=== PATIENT | male | born 1975 | race African-American/Black ===

== ENCOUNTER 2016-08-03 08:27 | Inpatient (IN) | payer OTHER ==
[~2016-08-03] VITALS: Ht 167.6 cm; Wt 69.5 kg
[2016-08-03 09:31] LABS: MCH 29.5 PG (29.0-34.0); MCHC 33.4 G/DL (30.0-36.0); MCV 88.2 FL (86-99); MEAN PLAT.VOLUME 9.6 uM^3 (9.0-12.4); PLATELET COUNT 325 K/uL (156-360); RBC DIS.WIDTH-CV 12.3 % (11.8-14.6); RBC DIS.WIDTH-SD 39.9 % (39-53); RED BLOOD COUNT 4.65 M/uL (4.00-5.50); WHITE BLOOD COUNT 23.8 K/uL (4.1-10.2)
[2016-08-03 10:08] LABS: ALKALINE PHOSPHATASE 104 IU/L (3-129); ANION GAP 11 MEQ/L (2-14); CHLORIDE 92 MEQ/L (99-109); GFR ESTIMATE (CALCULATED) > 59 mL/min/; GLUCOSE 389 mg/dL (70-99); POTASSIUM 4.3 MEQ/L (3.7-5.4); SAMPLE HEMOLYSIS CHECK 0; SAMPLE ICTERIC CHECK 0; SAMPLE LIPEMIA CHECK 0; SODIUM 131 MEQ/L (136-147); TOTAL BILIRUBIN 0.7 MG/DL (0.0-1.0); UREA NITROGEN (BUN) 14 mg/dL (9-23)
[2016-08-03] MEDS ORDERED: ALEVE220 MG PO (10:18)
[2016-08-03] MEDS ORDERED: MOTRIN IB200 MG PO (10:19)
[2016-08-03 10:26] LABS: BASOPHIL COUNT 0.1 K/uL (0-0.1); EOSINOPHIL (%) 0.5 % (0-5); EOSINOPHIL COUNT 0.1 K/uL (0-0.3); IMMATURE GRANULOCYTE (%) 0.5 % (0.0-0.7); IMMATURE GRANULOCYTE COUNT 0.1 K/uL; INSTRUMENT ABS NEUTROPHIL CT 19.8 K/uL; LYMPHOCYTE COUNT 1.4 K/uL (1.0-2.8); MONOCYTE (%) 9.9 % (3-12); MONOCYTE COUNT 2.4 K/uL (0-0.8); NEUTROPHIL (%) 83.1 % (45-76); NEUTROPHIL COUNT 19.8 K/uL (1.8-6.4)
[2016-08-03 12:51] LABS: C-REACTIVE PROTEIN > 240.0 MG/L (0-10); HDL CHOLESTEROL 14 MG/DL (Desirable>=40); LDL CHOLESTEROL 54 mg/dL (Desirable<100); NON-HDL CHOLESTEROL 71 mg/dL (Desirable<160); TOTAL CHOLESTEROL 85 mg/dL (Desirable<200); TRIGLYCERIDES 85 MG/DL (Normal: <150)
[2016-08-03 13:14] LABS: Estimated Average Glucose 286 mg/dL (70-123); HEMOGLOBIN A1c (GLYCOHEMOGLOB) 11.6 % HGB (Below 5.7)
[2016-08-03 14:24] LABS: POINT-OF-CARE METER ID UU14100415
[2016-08-03 17:35] VITALS: BP 141/74
[2016-08-03 19:41] VITALS: BP 124/62
[2016-08-03 23:16] VITALS: BP 133/73
[2016-08-04 06:39] LABS: ANION GAP 6 MEQ/L (2-14); CHLORIDE 98 MEQ/L (99-109); GFR ESTIMATE (CALCULATED) > 59 mL/min/; POTASSIUM 3.7 MEQ/L (3.7-5.4); SAMPLE HEMOLYSIS CHECK 0; SAMPLE ICTERIC CHECK 0; SAMPLE LIPEMIA CHECK 0; SODIUM 135 MEQ/L (136-147); UREA NITROGEN (BUN) 11 mg/dL (9-23)
[2016-08-04 06:40] LABS: GLUCOSE 175 mg/dL (70-99)
[2016-08-04 07:08] LABS: POINT-OF-CARE METER ID UU14188577
[2016-08-04 07:35] LABS: HEMATOCRIT 35.7 % (38.0-50.0); MCH 28.8 PG (29.0-34.0); MCHC 32.8 G/DL (30.0-36.0); MCV 87.9 FL (86-99); MEAN PLAT.VOLUME 9.4 uM^3 (9.0-12.4); PLATELET COUNT 293 K/uL (156-360); RBC DIS.WIDTH-CV 12.6 % (11.8-14.6); RBC DIS.WIDTH-SD 40.9 % (39-53); RED BLOOD COUNT 4.06 M/uL (4.00-5.50); WHITE BLOOD COUNT 25.6 K/uL (4.1-10.2)
[2016-08-04 08:00] VITALS: BP 131/75
[2016-08-04 12:12] VITALS: BP 147/82
[2016-08-04 12:25] LABS: POINT-OF-CARE METER ID UU14149397
[2016-08-04 15:58] VITALS: BP 130/74
[2016-08-04 17:10] LABS: POINT-OF-CARE METER ID UU14149397
[2016-08-04 19:55] VITALS: BP 140/81
[2016-08-04 23:09] LABS: POINT-OF-CARE METER ID UU14149397
[2016-08-05 00:17] VITALS: BP 117/60
[2016-08-05 03:53] VITALS: BP 138/69
[2016-08-05 07:51] VITALS: BP 129/70
[2016-08-05 08:44] LABS: HEMATOCRIT 35.5 % (38.0-50.0); MCH 29.2 PG (29.0-34.0); MCV 88.5 FL (86-99); MEAN PLAT.VOLUME 9.6 uM^3 (9.0-12.4); PLATELET COUNT 328 K/uL (156-360); RBC DIS.WIDTH-SD 42.2 % (39-53); RED BLOOD COUNT 4.01 M/uL (4.00-5.50); WHITE BLOOD COUNT 20.7 K/uL (4.1-10.2)
[2016-08-05 09:10] LABS: ANION GAP 8 MEQ/L (2-14); CHLORIDE 97 MEQ/L (99-109); GFR ESTIMATE (CALCULATED) > 59 mL/min/; POTASSIUM 4.4 MEQ/L (3.7-5.4); SAMPLE HEMOLYSIS CHECK 0; SAMPLE ICTERIC CHECK 0; SAMPLE LIPEMIA CHECK 0; SODIUM 133 MEQ/L (136-147); UREA NITROGEN (BUN) 9 mg/dL (9-23)
[2016-08-05 09:11] LABS: GLUCOSE 309 mg/dL (70-99)
[2016-08-05 11:18] LABS: POINT-OF-CARE METER ID UU14149397
[2016-08-05 11:30] VITALS: BP 123/71
[2016-08-05 15:45] LABS: POINT-OF-CARE METER ID UU14149397
[2016-08-05 15:56] VITALS: BP 141/93
[2016-08-05 19:57] LABS: POINT-OF-CARE METER ID UU13113675
[2016-08-05 21:14] VITALS: BP 118/60
[2016-08-05 22:13] LABS: POINT-OF-CARE METER ID UU14149397
[2016-08-06 00:32] VITALS: BP 123/65
[2016-08-06 03:38] VITALS: BP 124/68
[2016-08-06 04:42] LABS: HEMATOCRIT 33.7 % (38.0-50.0); MCH 29.2 PG (29.0-34.0); MCHC 33.2 G/DL (30.0-36.0); MCV 87.8 FL (86-99); MEAN PLAT.VOLUME 9.5 uM^3 (9.0-12.4); PLATELET COUNT 319 K/uL (156-360); RBC DIS.WIDTH-CV 12.9 % (11.8-14.6); RBC DIS.WIDTH-SD 41.4 % (39-53); RED BLOOD COUNT 3.84 M/uL (4.00-5.50); WHITE BLOOD COUNT 17.1 K/uL (4.1-10.2)
[2016-08-06 04:57] LABS: CHLORIDE 102 mEq/L (99-109); POTASSIUM 3.7 mEq/L (3.7-5.4); SODIUM 134 mEq/L (136-147)
[2016-08-06 04:58] LABS: GLUCOSE 319 mg/dL (70-99)
[2016-08-06 05:00] LABS: ANION GAP 8 MEQ/L (2-14)
[2016-08-06 05:02] LABS: GFR ESTIMATE (CALCULATED) > 59 mL/min/
[2016-08-06 05:03] LABS: UREA NITROGEN (BUN) 11 mg/dL (9-23)
[2016-08-06 06:19] LABS: POINT-OF-CARE METER ID UU14149397
[2016-08-06 07:00] VITALS: BP 127/73
[2016-08-06 08:29] LABS: POINT-OF-CARE METER ID UU14149397
[2016-08-06 10:56] VITALS: BP 117/78
[2016-08-06 12:47] LABS: HEMATOCRIT 36.1 % (38.0-50.0); MCHC 32.4 G/DL (30.0-36.0); MCV 89.4 FL (86-99); MEAN PLAT.VOLUME 10.1 uM^3 (9.0-12.4); PLATELET COUNT 361 K/uL (156-360); RBC DIS.WIDTH-CV 13.1 % (11.8-14.6); RBC DIS.WIDTH-SD 43.4 % (39-53); RED BLOOD COUNT 4.04 M/uL (4.00-5.50); WHITE BLOOD COUNT 14.4 K/uL (4.1-10.2)
[2016-08-06 14:28] VITALS: BP 139/73
[2016-08-06 16:28] LABS: POINT-OF-CARE METER ID UU14149397
[2016-08-06 22:53] LABS: POINT-OF-CARE METER ID UU14188577
[2016-08-06 23:12] VITALS: BP 133/81
[2016-08-07 04:16] VITALS: BP 143/84
[2016-08-07 06:45] LABS: HEMATOCRIT 33.3 % (38.0-50.0); MCH 29.7 PG (29.0-34.0); MCHC 33.6 G/DL (30.0-36.0); MCV 88.3 FL (86-99); MEAN PLAT.VOLUME 9.9 uM^3 (9.0-12.4); PLATELET COUNT 369 K/uL (156-360); RBC DIS.WIDTH-SD 41.2 % (39-53); RED BLOOD COUNT 3.77 M/uL (4.00-5.50)
[2016-08-07 07:08] LABS: ANION GAP 7 MEQ/L (2-14); CHLORIDE 101 MEQ/L (99-109); GFR ESTIMATE (CALCULATED) > 59 mL/min/; GLUCOSE 251 mg/dL (70-99); POTASSIUM 4.1 MEQ/L (3.7-5.4); SAMPLE HEMOLYSIS CHECK 0; SAMPLE ICTERIC CHECK 0; SAMPLE LIPEMIA CHECK 0; SODIUM 136 MEQ/L (136-147); UREA NITROGEN (BUN) 8 mg/dL (9-23)
[2016-08-07 08:08] VITALS: BP 134/53
[2016-08-07 11:21] VITALS: BP 122/76
[2016-08-07 16:01] VITALS: BP 131/76
[2016-08-07 19:42] VITALS: BP 149/77
[2016-08-07 22:22] LABS: POINT-OF-CARE METER ID UU14149397
[2016-08-07 23:29] VITALS: BP 128/77
[2016-08-08 06:25] LABS: HEMATOCRIT 36.3 % (38.0-50.0); MCHC 32.8 G/DL (30.0-36.0); MCV 88.5 FL (86-99); MEAN PLAT.VOLUME 9.3 uM^3 (9.0-12.4); PLATELET COUNT 422 K/uL (156-360); RBC DIS.WIDTH-SD 42.3 % (39-53); WHITE BLOOD COUNT 9.8 K/uL (4.1-10.2)
[2016-08-08 06:38] LABS: ANION GAP 3 MEQ/L (2-14); CHLORIDE 100 MEQ/L (99-109); GFR ESTIMATE (CALCULATED) > 59 mL/min/; GLUCOSE 217 mg/dL (70-99); POTASSIUM 4.1 MEQ/L (3.7-5.4); SAMPLE HEMOLYSIS CHECK 0; SAMPLE ICTERIC CHECK 0; SAMPLE LIPEMIA CHECK 0; SODIUM 135 MEQ/L (136-147); UREA NITROGEN (BUN) 8 mg/dL (9-23)
[2016-08-08 07:11] LABS: POINT-OF-CARE METER ID UU14149397
[2016-08-08 08:23] VITALS: BP 124/75
[2016-08-08 11:27] LABS: POINT-OF-CARE METER ID UU14149397
[2016-08-08 15:24] VITALS: BP 127/76
[2016-08-08 23:29] VITALS: BP 124/72
[2016-08-09 06:54] LABS: POINT-OF-CARE METER ID UU14149397
[2016-08-09 08:30] VITALS: BP 145/79
[2016-08-09 09:10] LABS: HEMATOCRIT 36.9 % (38.0-50.0); MCH 29.4 PG (29.0-34.0); MCHC 33.3 G/DL (30.0-36.0); MCV 88.3 FL (86-99); MEAN PLAT.VOLUME 9.2 uM^3 (9.0-12.4); PLATELET COUNT 501 K/uL (156-360); RBC DIS.WIDTH-SD 42.3 % (39-53); RED BLOOD COUNT 4.18 M/uL (4.00-5.50)
[2016-08-09 09:35] LABS: ANION GAP 7 MEQ/L (2-14); CHLORIDE 103 MEQ/L (99-109); GFR ESTIMATE (CALCULATED) > 59 mL/min/; GLUCOSE 218 mg/dL (70-99); POTASSIUM 4.2 MEQ/L (3.7-5.4); SAMPLE HEMOLYSIS CHECK 0; SAMPLE ICTERIC CHECK 0; SAMPLE LIPEMIA CHECK 0; SODIUM 139 MEQ/L (136-147); UREA NITROGEN (BUN) 7 mg/dL (9-23)
[2016-08-09 12:35] LABS: POINT-OF-CARE METER ID UU14188577
[2016-08-09 16:17] LABS: POINT-OF-CARE METER ID UU14188577
[2016-08-09 16:40] VITALS: BP 127/77
[2016-08-09 22:20] LABS: POINT-OF-CARE METER ID UU14188577
[2016-08-10 00:38] VITALS: BP 136/80
[2016-08-10 06:04] LABS: HEMATOCRIT 36.3 % (38.0-50.0); MCH 28.7 PG (29.0-34.0); MCHC 32.2 G/DL (30.0-36.0); MCV 89.2 FL (86-99); PLATELET COUNT 520 K/uL (156-360); RBC DIS.WIDTH-CV 13.1 % (11.8-14.6); RBC DIS.WIDTH-SD 42.9 % (39-53); RED BLOOD COUNT 4.07 M/uL (4.00-5.50); WHITE BLOOD COUNT 9.9 K/uL (4.1-10.2)
[2016-08-10 06:32] LABS: ANION GAP 3 MEQ/L (2-14); CHLORIDE 103 MEQ/L (99-109); GFR ESTIMATE (CALCULATED) > 59 mL/min/; GLUCOSE 130 mg/dL (70-99); POTASSIUM 4.1 MEQ/L (3.7-5.4); SAMPLE HEMOLYSIS CHECK 0; SAMPLE ICTERIC CHECK 0; SAMPLE LIPEMIA CHECK 0; SODIUM 137 MEQ/L (136-147); UREA NITROGEN (BUN) 9 mg/dL (9-23)
[2016-08-10 06:40] LABS: POINT-OF-CARE METER ID UU14188577
[2016-08-10 08:05] VITALS: BP 143/65
[2016-08-10 08:10] VITALS: BP 146/70
[2016-08-10 11:59] LABS: POINT-OF-CARE METER ID UU14188577
[2016-08-10 16:08] VITALS: BP 153/78
[2016-08-10 21:57] LABS: POINT-OF-CARE METER ID UU14188577
[2016-08-11 00:16] VITALS: BP 128/77
[2016-08-11 05:57] LABS: MCH 28.7 PG (29.0-34.0); MCHC 32.2 G/DL (30.0-36.0); MCV 89.4 FL (86-99); MEAN PLAT.VOLUME 9.1 uM^3 (9.0-12.4); PLATELET COUNT 508 K/uL (156-360); RBC DIS.WIDTH-CV 13.1 % (11.8-14.6); RBC DIS.WIDTH-SD 43.1 % (39-53); RED BLOOD COUNT 4.14 M/uL (4.00-5.50); WHITE BLOOD COUNT 8.3 K/uL (4.1-10.2)
[2016-08-11 06:22] LABS: ANION GAP 6 MEQ/L (2-14); CHLORIDE 102 MEQ/L (99-109); GFR ESTIMATE (CALCULATED) > 59 mL/min/; GLUCOSE 190 mg/dL (70-99); POTASSIUM 4.4 MEQ/L (3.7-5.4); SAMPLE HEMOLYSIS CHECK 0; SAMPLE ICTERIC CHECK 0; SAMPLE LIPEMIA CHECK 0; SODIUM 136 MEQ/L (136-147); UREA NITROGEN (BUN) 9 mg/dL (9-23)
[2016-08-11 06:22] LABS: POINT-OF-CARE METER ID UU14149397
[2016-08-11 07:30] VITALS: BP 132/84
[2016-08-11] MEDS ORDERED: ATORVASTATIN CA40 MG PO (10:33)
[2016-08-11] MEDS ORDERED: LEVEMIR100 UNIT/2 SC ×2 (10:33)
[2016-08-11] MEDS ORDERED: NOVOLOG PE100 UNITS/ SC (10:33)
[2016-08-11] MEDS ORDERED: LISINOPRIL5 MG PO (10:33)
[2016-08-11 11:32] LABS: POINT-OF-CARE METER ID UU14188577
== END 2016-08-11 15:25 | disposition home health service (06) | DRG 982 ==
LOC: EME 08:27 → EDOF 12:19 → 3EAST 12:19
PROVIDERS: Hospitalist; Internal Medicine; Nurse Practitioner Family; Physician Assistant; Student in an Organized Health Care Education/Training Program; Surgery
PROC: 0JDQ3ZZ Extraction of Right Foot Subcutaneous Tissue and Fascia, Percutaneous Approach (ICD-10-PCS; principal; 2016-08-04)
PROC: 0J9Q0ZZ Drainage of Right Foot Subcutaneous Tissue and Fascia, Open Approach (ICD-10-PCS; 2016-08-05)
DX: E11.69 Type 2 diabetes mellitus with other specified complication (principal); M86.071 Acute hematogenous osteomyelitis, right ankle and foot; E11.52 Type 2 diabetes mellitus with diabetic peripheral angiopathy with gangrene; L03.115 Cellulitis of right lower limb; L02.611 Cutaneous abscess of right foot; E87.1 Hypo-osmolality and hyponatremia; L97.519 Non-pressure chronic ulcer of other part of right foot with unspecified severity; B95.1 Streptococcus, group B, as the cause of diseases classified elsewhere; B96.89 Other specified bacterial agents as the cause of diseases classified elsewhere; E11.40 Type 2 diabetes mellitus with diabetic neuropathy, unspecified; E11.621 Type 2 diabetes mellitus with foot ulcer; I10 Essential (primary) hypertension; E78.5 Hyperlipidemia, unspecified; F17.210 Nicotine dependence, cigarettes, uncomplicated
CPT/HCPCS: 73630; 73720; 76937; 80048; 80053; 80061; 80202; 82948; 83036; 83605; 85025; 85027; 86140; 87040; 87070; 87075; 87076; 87077; 87186; 87205; 87493; 99281; 99285; J0131; J0295; J0690; J1650; J1815; J2250; J2270; J2543; J3010; J3370; J7030; J7050

== ENCOUNTER 2017-11-06 12:33 | Emergency (ER) | payer OTHER ==
[~2017-11-06] VITALS: Ht 167.6 cm; Wt 67.6 kg
[~2017-11-06 12:33] MED LIST: ALEVE220 MG PO; ATORVASTATIN CA40 MG PO; LEVEMIR100 UNIT/2 SC; LISINOPRIL5 MG PO; MOTRIN IB200 MG PO; NOVOLOG PE100 UNITS/ SC
[2017-11-06 13:31] LABS: BASOPHIL (%) 0.5 % (0-1); EOSINOPHIL (%) 2.3 % (0-5); EOSINOPHIL COUNT 0.2 K/uL (0-0.3); HEMATOCRIT 45.5 % (38.0-50.0); HEMOGLOBIN 15.6 G/DL (12.5-16.6); IMMATURE GRANULOCYTE (%) 0.3 % (0.0-0.7); LYMPHOCYTE (%) 21.4 % (15-42); LYMPHOCYTE COUNT 1.9 K/uL (1.0-2.8); MCH 31.6 PG (29.0-34.0); MCHC 34.3 G/DL (30.0-36.0); MCV 92.1 FL (86-99); MONOCYTE (%) 9.6 % (3-12); MONOCYTE COUNT 0.8 K/uL (0-0.8); NEUTROPHIL (%) 65.9 % (45-76); NEUTROPHIL COUNT 5.8 K/uL (1.8-6.4); PLATELET COUNT 251 K/uL (156-360); RBC DIS.WIDTH-CV 13.7 % (11.8-14.6); RBC DIS.WIDTH-SD 46.5 % (39-53); RED BLOOD COUNT 4.94 M/uL (4.00-5.50); WHITE BLOOD COUNT 8.8 K/uL (4.1-10.2)
[2017-11-06 13:43] LABS: CHLORIDE 93 mEq/L (99-109); POTASSIUM 5.1 mEq/L (3.7-5.4); SODIUM 130 mEq/L (136-147)
[2017-11-06 13:47] LABS: GLUCOSE 658 mg/dL (70-99)
[2017-11-06 13:49] LABS: CREATININE 1.4 mg/dL (0.6-1.3); GFR ESTIMATE (CALCULATED) > 59 mL/min/ (58.99-99999)
[2017-11-06 13:50] LABS: UREA NITROGEN (BUN) 12 mg/dL (9-23)
[2017-11-06 15:25] LABS: APPEARANCE CLEAR ((CLEAR)); BILIRUBIN NEGATIVE; BLOOD NEGATIVE; COLOR STRAW ((YELLOW)); GLUCOSE (STRIP) >=500; KETONES NEGATIVE; LEUKOCYTES NEGATIVE; NITRITE NEGATIVE; PROTEIN (STRIP) NEGATIVE; SPECIFIC GRAVITY 1.029 (1.000-1.030); UCUL ADDED? NO; UROBILINOGEN 0.2 MG/DL (0.2-1.0)
[2017-11-06] MEDS ORDERED: LEVEMIR100 UNIT/2 SC (18:25)
[2017-11-06] MEDS ORDERED: NOVOLOG 10100 UNITS/ SC (18:25)
[2017-11-06 18:51] VITALS: BP 121/62
== END 2017-11-06 18:55 | disposition home or self-care (01) ==
LOC: EME 12:33
PROVIDERS: Physician Assistant
DX: E11.69 Type 2 diabetes mellitus with other specified complication (principal); M86.9 Osteomyelitis, unspecified; E11.65 Type 2 diabetes mellitus with hyperglycemia; F17.200 Nicotine dependence, unspecified, uncomplicated; Z79.4 Long term (current) use of insulin; Z91.14 Patient's other noncompliance with medication regimen
CPT/HCPCS: 73630; 80048; 81003; 82948; 83605; 85025; 87070; 87077; 87147; 87205; 99281; 99284; J0696; J7030

== ENCOUNTER 2017-11-09 12:00 | Inpatient (IN) | payer OTHER ==
[~2017-11-09] VITALS: Ht 167.6 cm; Wt 68.3 kg
[~2017-11-09 12:00] MED LIST changes: +NOVOLOG 10100 UNITS/ SC
[2017-11-09 13:02] VITALS: BP 141/70
[2017-11-09 15:58] VITALS: BP 129/80
[2017-11-09 19:24] VITALS: BP 146/81
[2017-11-09 23:31] VITALS: BP 143/79
[2017-11-10 07:07] LABS: HEMATOCRIT 43.5 % (38.0-50.0); HEMOGLOBIN 14.7 G/DL (12.5-16.6); MCH 31.1 PG (29.0-34.0); MCHC 33.8 G/DL (30.0-36.0); MCV 92.2 FL (86-99); RBC DIS.WIDTH-CV 13.6 % (11.8-14.6); RBC DIS.WIDTH-SD 46.8 % (39-53); RED BLOOD COUNT 4.72 M/uL (4.00-5.50); WHITE BLOOD COUNT 8.9 K/uL (4.1-10.2)
[2017-11-10 07:13] LABS: PLATELET COUNT 356 K/uL (156-360)
[2017-11-10 07:25] LABS: ALBUMIN 3.7 G/DL (3.2-4.8); ALKALINE PHOSPHATASE 113 IU/L (3-129); ALT (GPT) 179 IU/L (3-49); AST (GOT) 103 IU/L (2-34); CHLORIDE 102 MEQ/L (99-109); GLUCOSE 76 mg/dL (70-99); TOTAL BILIRUBIN 0.7 MG/DL (0.0-1.0); UREA NITROGEN (BUN) 8 mg/dL (9-23)
[2017-11-10 07:28] LABS: CREATININE 0.9 MG/DL (0.6-1.3); GFR ESTIMATE (CALCULATED) > 59 mL/min/ (58.99-99999)
[2017-11-10 07:29] LABS: POTASSIUM 3.9 MEQ/L (3.7-5.4); SODIUM 139 MEQ/L (136-147)
[2017-11-10 07:36] LABS: ANISOCYTOSIS 1+; BASOPHIL (%) 0.8 % (0-1); BASOPHIL COUNT 0.1 K/uL (0-0.1); EOSINOPHIL COUNT 0.4 K/uL (0-0.3); IMMATURE GRANULOCYTE (%) 0.7 % (0.0-0.7); LYMPHOCYTE (%) 38.7 % (15-42); LYMPHOCYTE COUNT 3.5 K/uL (1.0-2.8); MACROCYTES 1+; MONOCYTE COUNT 1.2 K/uL (0-0.8); NEUTROPHIL (%) 42.8 % (45-76); NEUTROPHIL COUNT 3.8 K/uL (1.8-6.4)
[2017-11-10 07:47] VITALS: BP 120/81
[2017-11-10 12:10] VITALS: BP 112/62
[2017-11-10 16:18] VITALS: BP 115/63
[2017-11-10 22:56] VITALS: BP 118/78
[2017-11-11 04:54] VITALS: BP 113/65
[2017-11-11 05:06] LABS: HDL CHOLESTEROL 14 MG/DL (Desirable>=40); LDL CHOLESTEROL 78 mg/dL (Desirable<100); NON-HDL CHOLESTEROL 99 mg/dL (Desirable<160); TOTAL CHOLESTEROL 113 mg/dL (Desirable<200); TRIGLYCERIDES 106 MG/DL (Normal: <150)
[2017-11-11 10:48] LABS: HEMOGLOBIN A1c (GLYCOHEMOGLOB) 13.9 % (Below 5.7)
[2017-11-11 11:06] VITALS: BP 121/55
[2017-11-11 16:24] VITALS: BP 133/78
[2017-11-11 20:15] VITALS: BP 147/56
[2017-11-11 23:26] VITALS: BP 135/72
[2017-11-12 08:16] VITALS: BP 131/103; BP 137/75
[2017-11-12 16:07] VITALS: BP 134/81
[2017-11-12 19:22] VITALS: BP 123/71
[2017-11-13 00:46] VITALS: BP 122/62
[2017-11-13 07:51] VITALS: BP 139/79
[2017-11-13] MEDS ORDERED: METFORMIN HCL500 MG PO (15:39)
[2017-11-13] MEDS ORDERED: OXYCODONE-APAP1 EACH PO (15:39)
[2017-11-13 16:27] VITALS: BP 130/82
== END 2017-11-13 16:25 | disposition home or self-care (01) | DRG 617 ==
LOC: 3EAST 12:00 → ENRESERV 12:01 → 3EAST 12:28
PROVIDERS: Internal Medicine
PROC: 0Y6M0ZF Detachment at Right Foot, Partial 5th Ray, Open Approach (ICD-10-PCS; principal; 2017-11-10)
DX: E11.69 Type 2 diabetes mellitus with other specified complication (principal); M86.171 Other acute osteomyelitis, right ankle and foot; E11.65 Type 2 diabetes mellitus with hyperglycemia; E11.621 Type 2 diabetes mellitus with foot ulcer; L97.519 Non-pressure chronic ulcer of other part of right foot with unspecified severity; B95.1 Streptococcus, group B, as the cause of diseases classified elsewhere; B95.61 Methicillin susceptible Staphylococcus aureus infection as the cause of diseases classified elsewhere; E11.42 Type 2 diabetes mellitus with diabetic polyneuropathy; F17.210 Nicotine dependence, cigarettes, uncomplicated; Z79.4 Long term (current) use of insulin; Z91.14 Patient's other noncompliance with medication regimen; Z91.19 Patient's noncompliance with other medical treatment and regimen
CPT/HCPCS: 73630; 73720; 80048; 80053; 80061; 81003; 82948; 83036; 83605; 85025; 87070; 87075; 87076; 87077; 87147; 87186; 87205; 88305; 93005; 99281; 99284; J0696; J1644; J1815; J2250; J2543; J3010; J7030; J7050; S0020